=== PATIENT | male | born 1990 ===

== ENCOUNTER 2019-07-20 09:22 | Emergency (ER) | payer BC ==
[~2019-07-20] VITALS: Ht 175.3 cm; Wt 131.8 kg
[2019-07-20 09:38] VITALS: Ht 175.3 cm; Wt 131.8 kg
[2019-07-20] MEDS ORDERED: ZYRTEC10 MG PO (10:53)
[2019-07-20] MEDS ORDERED: FLUTICASONE PRO16 GM NASAL (10:53)
[2019-07-20] MEDS ORDERED: BROMFED-DM COU473 ML PO (10:53)
[2019-07-20 11:02] VITALS: BP 132/80
== END 2019-07-20 11:03 | disposition home or self-care (01) ==
LOC: D.ER 09:22
DX: J06.9 Acute upper respiratory infection, unspecified (principal); R05 Cough; R09.81 Nasal congestion